=== PATIENT | male | born 1995 | race Caucasian/White ===

== ENCOUNTER → 2025-02-14 | Outpatient (CLI) | payer SELFPAY ==
--- NOTE | 2025-02-14 16:20 | MRI_ITS ---
PROCEDURE: LOWER EXT JOINT ONLY (ROUTINE) 02/14/2025 REASON FOR EXAM: CONTUSION TECHNIQUE: Procedure Code: MRILEJ Modality: MR Procedure: LOWER EXT JOINT ONLY (ROUTINE) Multiplanar and multisequence images were obtained without IV contrast administration. COMPARISON: COMPARISON : FINDINGS: Postsurgical changes of an ACL repair, with an intact ACL graft. The PCL is intact. Asymmetric appearance of the MCL, with areas of apparent thickening proximally and distally, without adjacent inflammatory changes. This probably represents a chronic/old MCL injury. The LCL complex appears intact and unremarkable. The medial and lateral menisci are intact without MR evidence of a definite tear. The patella appears unremarkable. The medial and lateral patellar retinaculum are intact. The visualized distal quadriceps and patellar tendons appear intact and unremarkable. No sizable joint effusion. The bone marrow signal is unremarkable. Mild nonspecific subcutaneous edema along the anterior aspect of the knee. Otherwise the periarticular musculature and subcutaneous fat appear unremarkable. MRI/Lower Ext Joint Only (Routine) IMPRESSION: Postsurgical changes of an ACL repair with an intact graft. Asymmetric appearance of the MCL with areas of apparent thickening, without adj acent inflammatory changes. This probably represents a chronic/old MCL injury. Mild nonspecific subcutaneous edema along the anterior aspect of the knee. Reading Location: [id number]
== END | disposition home or self-care (01) ==
PROVIDERS: PCP Family Medicine; Referring Provider Physician Assistant; Visit Provider Physician Assistant
DX: S80.02XA Contusion of left knee, initial encounter (principal); S83.8X2A Sprain of other specified parts of left knee, initial encounter; X58.XXXA Exposure to other specified factors, initial encounter
CPT/HCPCS: 73721